=== PATIENT | female | born 1990 | race Caucasian/White ===

== ENCOUNTER 2021-07-18 07:46 | Outpatient (REF) | payer OTHER, MEDICAID, SELFPAY ==
--- NOTE | ~2021-07-18 | CT_ITS ---
EXAMINATION: CT CHEST WITH CONTRAST CLINICAL INFORMATION: Mediastinal mass COMPARISON: Previous chest x-ray May 2021 TECHNIQUE: Multidetector volumetric CT imaging of the chest was obtained after the administration of 65 mL of Omnipaque 350 intravenous contrast without immediate adverse reactions. Axial MIP volume rendering provided. Sagittal and coronal reformatted images were obtained. This CT examination was performed using dose optimization techniques as appropriate, variously including the following: *Automated exposure control *Adjustment of mA and/or kV according to patient size (this includes techniques or standardized protocols for targeted exams where dose is matched to indication/reason for exam; i.e. 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 There is a central right upper lobe nodule measures approximately 8 x 11 mm axial image 42 series 9. There is an adjacent smaller 5 x 6 mm right upper lobe nodule axial image 38 series 7 and 3 mm right upper lobe nodule axial image 47 series 7. There may be a small central 4 mm left upper lobe nodule axial image 48 series 7.. The lungs are otherwise clear. MEDIASTINUM: There is mediastinal and bilateral hilar lymphadenopathy. Largest lymph node is a right paratracheal lymph node or conglomerate lymph node measuring 1.2 cm meters in short axis axial image 15 series 3. Largest hilar lymph node measures 2 cm. The heart does not appear enlarged. There is no pericardial effusion. The thoracic aorta is normal in caliber. PLEURA: There is no pleural effusion. No pleural mass or thickening. AXILLA: No lymphadenopathy. UPPER ABDOMEN: There may be fatty infiltration of the liver. OSSEOUS STRUCTURES: Unremarkable. CT/CT chest w con IMPRESSION: Enlarged mediastinal and bilateral hilar lymph nodes. Mild reticular nodular disease at both lung apices and upper lobe nodules, largest measuring 8 x 11 mm in the right upper lobe. Infectious, inflammatory and neoplastic processes should be considered. In particular, sarcoidosis should be considered. Fleischner guidelines were followed.
== END 2021-07-18 07:47 | disposition home or self-care (01) ==
LOC: HO.CT 07:46
PROVIDERS: Visit Provider Nurse Practitioner
DX: J98.59 Other diseases of mediastinum, not elsewhere classified (principal)
CPT/HCPCS: 71260